=== PATIENT | female | born 1950 | race Caucasian/White ===

== ENCOUNTER 2018-03-28 08:39 | Day surgery (SDC) | payer OTHER ==
[2018-03-28] MEDS ORDERED: LIDOCAINE 2% (SDV) 5 ML INJ (10:48)
[2018-03-28] MEDS ORDERED: GLYCOPYRROLATE 0.4 MG INJ (10:49)
[2018-03-28] MEDS ORDERED: PROPOFOL 40 ML (10:49)
== END 2018-03-31 14:57 | disposition home or self-care (01) ==
LOC: GIL 08:39
DX: D12.2 Benign neoplasm of ascending colon (principal); K64.4 Residual hemorrhoidal skin tags; I10 Essential (primary) hypertension; J45.909 Unspecified asthma, uncomplicated
CPT/HCPCS: 45380; 88305

== ENCOUNTER 2018-11-12 08:41 | Day surgery (SDC) | payer OTHER ==
[2018-11-12] MEDS ORDERED: MIDAZOLAM 1 MG/ML 2 ML INJ (11:35)
[2018-11-12] MEDS ORDERED: PROPOFOL 20 ML (11:35)
== END 2018-11-12 12:34 | disposition home or self-care (01) ==
LOC: GIL 08:41
DX: Z12.11 Encounter for screening for malignant neoplasm of colon (principal); D12.3 Benign neoplasm of transverse colon; D12.2 Benign neoplasm of ascending colon; K64.8 Other hemorrhoids; K57.31 Diverticulosis of large intestine without perforation or abscess with bleeding; I10 Essential (primary) hypertension; E78.5 Hyperlipidemia, unspecified; E66.01 Morbid (severe) obesity due to excess calories; Z68.41 Body mass index [BMI] 40.0-44.9, adult
CPT/HCPCS: 45380; 88305